=== PATIENT | male | born 1970 | race Caucasian/White ===

== ENCOUNTER 2019-05-24 20:24 | Emergency (ER) | payer OTHER ==
[~2019-05-24] VITALS: Ht 180.3 cm; Wt 90.7 kg
[2019-05-24 20:38] VITALS: BP_SYST 126
[2019-05-24] MEDS ORDERED: KETOROLAC TROMETHAMINE 30 MG VIAL IM ONE (21:00)
[2019-05-24 22:15] VITALS: BP_SYST 126
== END 2019-05-24 22:15 | disposition home or self-care (01) ==
LOC: SED 20:24
DX: S00.03XA Contusion of scalp, initial encounter (principal); S60.022A Contusion of left index finger without damage to nail, initial encounter; Z88.1 Allergy status to other antibiotic agents; W01.0XXA Fall on same level from slipping, tripping and stumbling without subsequent striking against object, initial encounter; Y93.89 Activity, other specified; Y92.89 Other specified places as the place of occurrence of the external cause; Y99.8 Other external cause status
CPT/HCPCS: 70450; 73140; 96372; 99284; J1885